=== PATIENT | female | born 1995 | race Caucasian/White ===

== ENCOUNTER → 2024-06-15 10:00 | Outpatient (REF) | payer OTHER, SELFPAY | LOC: RCS 10:00 | PROVIDERS: ATTENDING PHYSICIAN Nurse Practitioner Family | DX: R55 Syncope and collapse (principal); Z80.8 Family history of malignant neoplasm of other organs or systems | CPT/HCPCS: 93225; 93226 ==

== ENCOUNTER → 2024-07-12 19:31 | Outpatient (REF) | payer OTHER, SELFPAY | LOC: MRI 19:31 | PROVIDERS: ATTENDING PHYSICIAN Family Medicine | DX: R55 Syncope and collapse (principal); Z80.8 Family history of malignant neoplasm of other organs or systems | CPT/HCPCS: 70551 ==